=== PATIENT | male | born 1980 | race African-American/Black ===

== ENCOUNTER 2016-12-11 22:28 | Emergency (ER) | payer OTHER, SELFPAY ==
[2016-12-11] MEDS ORDERED: Sodium Chloride 0.9% 1,000 ML ONE (22:43)
[2016-12-11 22:54] LABS: Band 1 % (5-11); Eosinophils 2 % (0-10); Lymphocytes 64 % (21-51); MDiff Complete? YES; Mean Corpuscular HGB CONC 33.8 g/dL (32.0-36.0); Mean Corpuscular Hemoglobin 26.9 pg (27.0-31.0); Mean Corpuscular Volume 79.7 fl (80.0-94.0); Mean Platelet Volume 8.3 fL (7.4-10.4); Monocytes 6 % (0-10); Neutrophil 24 % (42-75); PLT Morphology Comment Appears Adequate; Platelet Count 276 thou/uL (130-400); RBC Distribution Width 12.2 % (11.5-14.5); RBC Morphology Normal; Reactive Lymphocytes 2 % (0-10); Red Blood Cell (RBC) Count 6.33 mill/uL (4.70-6.10); White Blood Cell (WBC) Count 9.7 thou/uL (4.8-10.8)
[2016-12-11 23:03] LABS: ALT (SGPT) 53 U/L (8-55); AST (SGOT) 37 U/L (5-34); Albumin 4.6 g/dL (3.5-5.0); Alkaline Phosphatase 85 U/L (40-150); Anion Gap 24 mmol/L (10-20); BUN (Urea Nitrogen) 12 mg/dL (8.9-20.6); Bilirubin, Total 0.2 mg/dL (0.2-1.2); Calc. Creatinine Clearance 0 mL/min (70-130); Calcium 9.4 mg/dL (7.8-10.44); Carbon Dioxide 19 mmol/L (22-29); Chloride 102 mmol/L (98-107); Estimated GFR-MDRD 81; Globulin 3.6 g/dL (2.4-3.5); Glucose 95 mg/dL (70-105); Protein, Total 8.2 g/dL (6.0-8.3); Sodium 141 mmol/L (136-145)
[2016-12-11 23:05] LABS: Bilirubin Negative (Negative); Blood, Urine Small (Negative); Clarity Clear (Clear); Glucose, Urine (Dipstick) Negative (Negative); Leukocyte Negative (Negative); Nitrite Negative (Negative); Protein, Urine (Dipstick) 100 mg/dL (Neg-Trace); Specific Gravity, Urine 1.027 (1.002-1.036); Urobilinogen 0.2 mg/dL (0.2-1.0)
[2016-12-11 23:06] LABS: Bacteria/HPF None Seen HPF (None Seen); Squamous Epithelial 0-3 HPF (0-3); WBC/HPF None Seen HPF (0-3)
[2016-12-11 23:07] LABS: Acetaminophen Less than 6.0 mcg/mL (10.0-30.0); Alcohol 47 mg/dL (Less than 10); Salicylate Less than 8.0 mg/dL (15.0-30.0)
[2016-12-11] MEDS ORDERED: Lorazepam 2 MG/ML VIAL ONE (23:12)
[2016-12-11 23:13] LABS: Amphetamine Not Detected (NotDetected); Barbiturates Screen Not Detected (NotDetected); Benzodiazepine Screen Not Detected (NotDetected); Cocaine Metabolite Screen Not Detected (NotDetected); Medtox Control Line Valid? VALID (VALID); Methadone Not Detected (NotDetected); Methamphetamine Not Detected (NotDetected); Opiate Screen Not Detected (NotDetected); Oxycodone Screen Not Detected (NotDetected); Phencyclidine (PCP) Detected (NotDetected); THC/Cannabinoid Screen Not Detected (NotDetected); Tricyclic Screen Not Detected (NotDetected)
[2016-12-12 01:16] LABS: Base Excess 3.9 mEq/L (0 (+/- 2.5)); Hemoglobin (Hb) 16.3 g/dL (13.2-17.3)
[2016-12-12 01:28] LABS: Anion Gap 15 mmol/L (10-20); BUN (Urea Nitrogen) 11 mg/dL (8.9-20.6); Calc. Creatinine Clearance 0 mL/min (70-130); Calcium 8.6 mg/dL (7.8-10.44); Carbon Dioxide 25 mmol/L (22-29); Chloride 106 mmol/L (98-107); Estimated GFR-MDRD Greater than 90; Glucose 89 mg/dL (70-105); Potassium 4.2 mmol/L (3.5-5.1); Sodium 142 mmol/L (136-145)
== END 2016-12-12 01:37 ==
LOC: NAV ERS 22:28
DX: F16.10 Hallucinogen abuse, uncomplicated (principal); F17.210 Nicotine dependence, cigarettes, uncomplicated
CPT/HCPCS: 36415; 80048; 80053; 80306; 80307; 81003; 81015; 82805; 83605; 85025; 93005; 96361; 96374; J2060; J7050

== ENCOUNTER 2016-12-30 20:29 | Emergency (ER) | payer OTHER, SELFPAY ==
[2016-12-30] MEDS ORDERED: Lorazepam 2 MG/ML VIAL ONE (21:01)
[2016-12-30] MEDS ORDERED: Sodium Chloride 0.9% 1,000 ML ONE ×2 (21:01→22:58)
[2016-12-30 21:08] LABS: #Basophils 0.2 thou/uL (0.0-0.2); #Eosinphils 0.2 thou/uL (0.0-0.7); #Lymphocytes 4.5 thou/uL (1.20-3.40); #Monocytes 0.5 thou/uL (0.11-0.59); #Neutrophils 3.9 thou/uL (1.40-6.50); %Basophils 2.3 % (0.0-1.0); %Eosinophils 2.3 % (0.0-10.0); %Monocytes 5.7 % (0.0-10.0); %Neutrophils 41.7 % (42.0-75.0); Hemoglobin 15.5 g/dL (14.0-18.0); Mean Corpuscular HGB CONC 32.5 g/dL (32.0-36.0); Mean Corpuscular Volume 80.1 fl (80.0-94.0); Platelet Count 305 thou/uL (130-400); RBC Distribution Width 12.4 % (11.5-14.5); Red Blood Cell (RBC) Count 5.97 mill/uL (4.70-6.10); White Blood Cell (WBC) Count 9.3 thou/uL (4.8-10.8)
[2016-12-30 21:12] LABS: Anion Gap 19 mmol/L (10-20); BUN (Urea Nitrogen) 12 mg/dL (8.9-20.6); Carbon Dioxide 20 mmol/L (22-29); Chloride 106 mmol/L (98-107); Potassium 3.8 mmol/L (3.5-5.1); Sodium 141 mmol/L (136-145)
[2016-12-30 21:13] LABS: ALT (SGPT) 78 U/L (8-55); AST (SGOT) 40 U/L (5-34); Acetaminophen Less than 6.0 mcg/mL (6.0-30.0); Albumin 4.3 g/dL (3.5-5.0); Alkaline Phosphatase 88 U/L (40-150); Bilirubin, Total 0.2 mg/dL (0.2-1.2); Calc. Creatinine Clearance 0 mL/min (70-130); Calcium 9.1 mg/dL (7.8-10.44); Estimated GFR-MDRD Greater than 90; Globulin 3.3 g/dL (2.4-3.5); Glucose 93 mg/dL (70-105); Lipase 71 U/L (8-78); Magnesium 2.6 mg/dL (1.6-2.6); Protein, Total 7.6 g/dL (6.0-8.3)
[2016-12-30 21:14] LABS: Alcohol 130 mg/dL (Less than 10); Salicylate Less than 8.0 mg/dL (15.0-30.0)
[2016-12-30 21:23] LABS: CKMB 0.9 ng/mL (0-6.6); Troponin I Less than 0.010 ng/mL (< 0.028)
[2016-12-30] MEDS ORDERED: Adacel (T-DAP) 0.5 ML VIAL ONE (21:28)
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
[2016-12-30 21:31] LABS: Amphetamine Not Detected (NotDetected); Barbiturates Screen Not Detected (NotDetected); Benzodiazepine Screen Not Detected (NotDetected); Cocaine Metabolite Screen Not Detected (NotDetected); Medtox Control Line Valid? VALID (VALID); Methadone Not Detected (NotDetected); Methamphetamine Not Detected (NotDetected); Opiate Screen Not Detected (NotDetected); Oxycodone Screen Not Detected (NotDetected); Phencyclidine (PCP) Detected (NotDetected); THC/Cannabinoid Screen Not Detected (NotDetected); Tricyclic Screen Not Detected (NotDetected)
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
--- NOTE | 2016-12-30 21:56 | RAD ---
AP VIEW CHEST 12/30/16 HISTORY: Altered mental status. AP view of the chest is obtained. The lungs are well aerated. No evidence of active intrathoracic di sease seen. No evidence of effusions, pneumonia or pneumothorax seen. IMPRESSION: Unremarkable AP view chest. POS: [facility]
[2016-12-30 22:13] LABS: Bilirubin Negative (Negative); Blood, Urine Moderate (Negative); Clarity Clear (Clear); Glucose, Urine (Dipstick) Negative (Negative); Leukocyte Negative (Negative); Nitrite Negative (Negative); Protein, Urine (Dipstick) 30 mg/dL (Neg-Trace); RBC/HPF 0-3 HPF (0-3); Specific Gravity, Urine 1.015 (1.005-1.030); Urobilinogen 0.2 mg/dL (0.2-1.0); pH, Urine 5.5 (5.0-9.0)
[2016-12-30 22:14] LABS: Bacteria/HPF None Seen HPF (None Seen); Squamous Epithelial 0-3 HPF (0-3); WBC/HPF None Seen HPF (0-3)
[2016-12-31] MEDS ORDERED: Cephalexin 500 MG CAP ONE (00:38)
[2016-12-31] MEDS ORDERED: Triple Antibiotic Oint 1 GM Packet ONE (00:44)
== END 2016-12-31 00:59 | disposition home or self-care (01) ==
LOC: NAV ERS 20:53
DX: S01.511A Laceration without foreign body of lip, initial encounter (principal); F10.129 Alcohol abuse with intoxication, unspecified; F17.210 Nicotine dependence, cigarettes, uncomplicated; Z23 Encounter for immunization; V89.2XXA Person injured in unspecified motor-vehicle accident, traffic, initial encounter; Y92.488 Other paved roadways as the place of occurrence of the external cause
CPT/HCPCS: 12013; 36416; 70450; 71010; 72125; 80053; 80306; 80307; 81003; 81015; 82553; 83690; 83735; 84443; 84484; 85025; 90471; 90715; 93005; 96361; 96374; J2060; J7050

== ENCOUNTER 2017-03-20 14:00 | Emergency (ER) | payer OTHER, SELFPAY ==
--- NOTE | 2017-03-20 15:03 | CT ---
NONCONTRAST CT OF CERVICAL SPINE: Date: 03/20/17 INDICATION: 36-year-old male with neck pain and lower back pain starting 1 month ago that has progressively wors ened. COMPARISON: Prior CT of the cervical spine dated 12/30/16. FINDINGS: Craniocervical junction appears within normal limits. Vertebral body heights and disc spaces appear within normal limits. Osseous central canal and prevertebral soft tissues are within normal limits. Lung apices are clear. IMPRESSION: No acute osseous abnormality of the cervical spine. POS: [facility]
== END 2017-03-20 15:09 | disposition home or self-care (01) ==
LOC: NAV ERS 14:00
DX: M54.2 Cervicalgia (principal); F17.210 Nicotine dependence, cigarettes, uncomplicated
CPT/HCPCS: 72125

== ENCOUNTER 2018-01-14 19:05 | Emergency (ER) | payer OTHER, SELFPAY ==
[2018-01-14] MEDS ORDERED: predniSONE 20 MG TAB ONE (19:41)
--- NOTE | 2018-01-14 20:42 | RAD ---
LEFT KNEE FOUR VIEWS: HISTORY: Left knee pain. FINDINGS: No fracture, dislocation, or bony destruction is seen. POS: [facility]
== END 2018-01-14 19:58 | disposition home or self-care (01) ==
LOC: NAV ERS 19:05
DX: S83.92XA Sprain of unspecified site of left knee, initial encounter (principal); M79.89 Other specified soft tissue disorders; F17.210 Nicotine dependence, cigarettes, uncomplicated; X58.XXXA Exposure to other specified factors, initial encounter
CPT/HCPCS: J7506